=== PATIENT | male | born 1935 | race Caucasian/White ===

== ENCOUNTER → 2016-07-11 | Day surgery (SDC) | payer MEDICARE ==
[~2016-07-11] MED LIST: GENTAMICIN SULFATE 80 MG/2 ML VIAL ONE; LACTATED RINGER'S 1000 ML INJ 1,000 ML ONE; MIDAZOLAM HCL 2 MG/2 ML VIAL ONE; ONDANSETRON HCL 4 MG/2 ML VIAL IV PUSH ONE; PROPOFOL 100 MG/10 ML INJ IV ONE; STERILE WATER FOR INJ 20 ML VIAL ONE; mitoMYcin 5 MG VIAL ONE
--- NOTE | 2016-07-11 12:49 | TN ---
cc: PAYTON TSANG M.D. DATE OF SURGERY 07/11/2016 PREOPERATIVE DIAGNOSES 1. Bladder lesion (ICD-10 code D41.4). 2. Personal history of bladder cancer (ICD-10 code Z85.51). PROCEDURE 1. Transurethral resection of bladder tumor (TURBT)(CPT code 87729). 2. Intravesical placement of mitomycin-C chemotherapy (CPT code 59825). INDICATIONS Mr. Chavez is an 80-year-old gentleman with a history of recurrent transitional cell carcinoma of the bladder who on surveillance cystoscopy was seen to have some suspicious lesions, presents now for removal of these as well as placement of intravesical mitomycin-C chemotherapy for prevention of recurrent tumors. FINDINGS Normal urethra. 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 The trigone shows ureteral orifices bilaterally that are slit-like. There is some telangiectasia diffusely of the bladder. The area of concern in the left lateral wall just above the trigone and in the left anterolateral wall there is a what appears to be a suspicious-looking sessile lesion which is velvety and erythematous. The remainder of the bladder is actually pretty unremarkable with no diverticula or calcifications identified. PROCEDURE The procedure as well as risks and benefits were explained to the patient and informed consent was obtained. The patient was taken to the major operative theater where he was placed in supine position. The patient was identified as well as the operative site. A universal time-out was performed in standard fashion. At this time general anesthetic and prophylactic intravenous antibiotics consisting of gentamicin 80 mg was administered. After adequate anesthetic, he was placed in low dorsal lithotomy position, prepped and draped in the usual sterile fashion. At this time a 22.5-Uzbek cystoscope with a 30-degree lens was inserted into the urethra and bladder with the above findings. The 30-degree lens was exchanged for the 70-degree lens. The entire bladder was systematically surveyed. Then using the 30-degree lens and a rigid biopsy forceps, tax compliance representative biopsies were taken of the two lesions of concern and then a Bugbee probe was used to fulgurate the entire lesions as well as a margin of normal-appearing tissue. Care was taken not to fulgurate over the ureteral orifice on that left side. After confirming hemostasis and appropriate resection of the tumors, the bladder was decompressed, the cystoscope removed. A 16-Uzbek Mitchell catheter was placed and mitomycin-C chemotherapy was injected through the catheter into the bladder with 20 mg in 20 cc of sterile water and the catheter was capped. This was to be kept in in the recovery room for one hour changing positions every 15 minutes. Then the mitomycin-C will be drained and the catheter removed. The patient, once he voids, will be discharged home when criteria was met. The patient was then placed in a supine position, emerged from anesthetic without difficulty and transferred to the recovery room with the above instructions. There were no obvious complications. MD ML Meier/BERTA /12:24 PM /12:38 PM
== END | disposition home or self-care (01) ==
LOC: ESDC 09:33
PROVIDERS: ATTEND Urology
DX: D41.4 Neoplasm of uncertain behavior of bladder (principal); Z85.51 Personal history of malignant neoplasm of bladder
CPT/HCPCS: 00910; 00912; 51720; 52234; 88305; J1580; J2250; J2405; J3010; J7120; J9280; 88307